=== PATIENT | female | born 1975 | race Caucasian/White ===

== ENCOUNTER 2017-02-18 10:55 | Emergency (ER) | payer OTHER ==
[~2017-02-18] VITALS: Ht 165.1 cm; Wt 86.2 kg
--- NOTE | ~2017-02-18 | EKG ---
PATIENT: SAJAN AVILES UNIT #: [id number] Ventricular Rate: 99 BPM Atrial Rate: 99 BPM P-R Interval: 148 ms QRS Duration: 86 ms Q-T Interval: 340 ms QTC Calculation(Bezet): 436 ms P [place]: 66 degrees Calculated R [place]: 53 degrees Calculated T [place]: 56 degrees Diagnosis Line: Normal sinus rhythm Diagnosis Line: Possible Left atrial enlargement Diagnosis Line: Borderline ECG Diagnosis Line: No previous ECGs available Diagnosis Line: Confirmed by SHARAN MIRELES MD ([id number]) on 02/19/2017 Diagnosis Line: 5:03:04 PM INTERPRETING MD: CHI HOPKINS
--- NOTE | ~2017-02-18 | CT71 ---
[facility] A Service [facility] RADIOLOGY TEXT RESULTS PATIENT: SAJAN AVILES LOCATION: [facility] : 77 UNIT #: [id number] AGE: [address]: Caitlin Cortes MD SEX: F ORDER DR: [id number] [facility]. [place], [place] [address] [id number] E MR#: [id number] Acc #: [id number] NAME: SAJAN AVILES. : 1975 SEX: F STUDY DATE/TIME: 02/18/2017 14:15 UNIT: [facility] ROOM: STUDY DESCRIPTION: CT Head Wo Contrast Attending Physician: Caitlin Cortes M.D. Ordering Physician: Caitlin Cortes M.D. Primary Care Physician: No Primary Care Physician MEDICAL IMAGING REPORT This report is preliminary unless electronic signature is present EXAM Head CT, no contrast; 02/18/2017. PROCEDURE Axial unenhanced head CT. This CT exam was performed with one or more of the following radiation dose reduction techniques: automatic exposure control, adjustment of mA and/or kV according to patient size, and iterative reconstruction. COMPARISON None. CLINICAL HISTORY Headache and fatigue, and chills for 3 days. FINDINGS The brain is normal. There is no intracranial hemorrhage, mass, hydrocephalus or extraaxial fluid collection or evidence of infarct. The extracranial soft tissues are normal. There is extensive sinus opacification including the majority of the ethmoid air cells, as well as bilateral sphenoid and maxillary mucosal thickening. IMPRESSION The brain is normal. There is extensive sinus mucosal disease, though no air-fluid levels are seen. There are no areas of bone erosion or destruction. Dictated by... Joaquin Rowan M.D. [facility] A Service [facility] RADIOLOGY TEXT RESULTS PATIENT: SAJAN AVILES LOCATION: [facility] : 77 UNIT #: [id number] AGE: [address]: Caitlin Cortes MD SEX: F ORDER DR: THIS IS AN ELECTRONICALLY VERIFIED REPORT Joaquin Rowan M.D. at 02/22/2017 9:08 AM PATO/jalondra TD: 02/18/2017 19:25 JOB #: [id number] MEDICAL IMAGING REPORT Page 1 of 1 COPY
--- NOTE | ~2017-02-18 | CR72 ---
[facility] A Service of [facility] RADIOLOGY TEXT RESULTS PATIENT: SAJAN AVILES LOCATION: [facility] : 77 UNIT #: [id number] AGE: [address]: Caitlin Cortes MD SEX: F ORDER DR: [id number] [facility] [address]. [place], [place] [address] [id number] E MR#: [id number] Acc #: [id number] NAME: SAJAN AVILES : 1975 SEX: F STUDY DATE/TIME: 02/18/2017 UNIT: [facility] ROOM: STUDY DESCRIPTION: CR Chest Single View Portable Attending Physician: Caitlin Cortes M.D. Ordering Physician: Caitlin Cortes M.D. MEDICAL IMAGING REPORT This report is preliminary unless electronic signature is present EXAM Chest portable 02/18/2017 1334 hours HISTORY 41-year-old with fatigue, headache and chills for 2 days. COMPARISON None. FINDINGS Portable upright chest demonstrates normal cardiac, mediastinal and hilar contours. The lungs are clear and there are no effusions. No bone lesions seen. IMPRESSION Normal portable chest. Dictated by... Janae Yarbrough M.D. THIS IS AN ELECTRONICALLY VERIFIED REPORT Janae Yarbrough M.D. at 02/19/2017 9:08 AM LIZEHT/marissa TD: 02/18/2017 18:50 JOB #: [id number] MEDICAL IMAGING REPORT Page 1 of 1 COPY
[~2017-02-18 10:55] MED LIST: CIPRO PO; FLAGYL PO; PERCOCET 5/321 UDTAB DOB
[2017-02-18 11:53] LABS: BASOPHIL# 0.1 X10e3 (0-0.3); BASOPHIL% 0.6 % (0-2.5); EOSINOPHIL# 0.1 X10e3 (0-0.7); EOSINOPHIL% 1.1 % (0.0-7.0); HEMATOCRIT 47.4 % (35.0-45.0); HEMOGLOBIN 16.1 gm/dL (12.0-16.0); LYMPHOCYTE# 1.8 X10e3 (1.0-3.5); LYMPHOCYTE% 19.8 % (17.0-45.0); MEAN CELL VOLUME 91.4 FL (83-96); MEAN CORPUSCULAR HEMOGLOBIN 31.1 PG (28-34); MEAN CORPUSCULAR HGB CONC 34.1 g/dL (30-36); MEAN PLATELET VOLUME 8.3 FL (6.5-11.5); MONOCYTE# 1.1 X10e3 (0-1.0); NEUTROPHIL# 6.1 X10e3 (1.5-7.1); NEUTROPHIL% 66.5 % (40-75); PLATELET COUNT 284 X10e3 (140-420); RED BLOOD COUNT 5.19 X10e (3.90-5.30); RED CELL DISTRIBUTION WIDTH 13.5 % (11.0-15.5); WHITE BLOOD COUNT 9.1 X10e3 (4.0-10.5)
[2017-02-18 11:54] LABS: DIFF IND NO
[2017-02-18 12:22] LABS: ALBUMIN SERUM 4.6 g/dL (3.5-5.0); BILIRUBIN, DIRECT 0.1 mg/dL (0.0-0.2); BILIRUBIN,INDIRECT 0.4 mg/dL (0.0-0.9); BILIRUBIN,TOTAL 0.5 mg/dL (0.2-2.0); BUN/CREATININE RATIO 15.55; CALCIUM SERUM 9.7 mg/dL (8.4-10.2); CREATININE SERUM 0.9 mg/dL (0.6-1.4); POTASSIUM 4.5 mmol/L (3.5-5.1); PROTEIN TOTAL SERUM 8.5 g/dL (6.0-8.3)
[2017-02-18 12:27] LABS: POC - CKMB <1.0 ng/mL (0.0-7.9); POC - TROPONIN <0.05 ng/mL (<=0.05)
[2017-02-18 13:44] LABS: URINE SOURCE CLEAN CATCH
[2017-02-18 13:51] LABS: URINE APPEARANCE CLOUDY; URINE BLOOD NEG (NEG); URINE COLOR DK YELLOW; URINE GLUCOSE NEG (NEG); URINE KETONE TRACE (NEG); URINE LEUKOCYTE ESTERASE 1+ (NEG); URINE NITRATE NEG (NEG); URINE PROTEIN 1+ (NEG); URINE SPECIFIC GRAVITY 1.031 (1.003-1.035)
[2017-02-18 13:54] LABS: CULTURE INDICATED? YES; URBCS1 AUWI 0-2 /[HPF] (0-2); URINE BACTERIA AUWI 2+ (NEGATIVE); URINE SQUAMOUS EPITHELIAL CELL MANY /[HPF]
[2017-02-18 13:59] LABS: URINE BILIRUBIN NEG (NEG)
[2017-02-18 14:16] LABS: INFLUENZA A NEG (NEG); INFLUENZA B NEG (NEG)
== END 2017-02-18 15:33 | disposition home or self-care (01) ==
LOC: CED 10:55
PROVIDERS: Emergency Medicine
DX: R51 Headache (principal); F17.210 Nicotine dependence, cigarettes, uncomplicated; Z88.5 Allergy status to narcotic agent
CPT/HCPCS: 36415; 70450; 71010; 80048; 80076; 81003; 82553; 84484; 85025; 87086; 87651; 87804; 93005; 99284; J0780; J1885; J2930